=== PATIENT | female | born 1965 | race Caucasian/White ===

== ENCOUNTER 2022-11-06 07:00 | Outpatient (NON) | payer BC, SELFPAY | END 2022-11-06 07:01 | disposition home or self-care (01) | LOC: ANHLAB 11-08 13:54 | PROVIDERS: PCP Nurse Practitioner; Visit Provider Nurse Practitioner | DX: C44.622 Squamous cell carcinoma of skin of right upper limb, including shoulder (principal) | CPT/HCPCS: 88305 ==

== ENCOUNTER 2024-07-03 00:37 | Day surgery (SDC) | payer BC, SELFPAY ==
[2024-07-01 12:52] VITALS: BMI 18.6
--- NOTE | 2024-07-01 12:54 | PC.NURSE ---
Report to the Outpatient Waiting Room, entrance under the green pavilion located off [facility], at time _0730_ on date _[id number]_. Planned Procedure Time: _0930_. Time changes happen often and if your time is changed the preop area will call you the afternoon before. - You and your visitor will be asked to self-screen and do not enter if you have any COVID symptoms. - A mask is optional within the hospital at this time. Patients may have clear liquids (water, carbonated beverages, clear teas, apple juice) until 3 hours prior to surgery with a maximum of 20 ounces. - No food from midnight until time of surgery Take the following medications with a SIP of water the morning of surgery: ___Levothyroxine and if needed pain and or nausea medicine. DO NOT STOP ANY OF YOUR OTHER PRESCRIPTION MEDICATIONS PRIOR TO SURGERY ?EXCEPT THE FOLLOWING Medications to discontinue per physician None Date to take last dose Please no make-up, nail greek, hairspray, perfume, deodorant, or body powder the day of surgery. No jewelry (including any body piercings) or valuables the day of surgery, leave them at home. Please take a shower or bath the night before, or the morning of, surgery with an antibacterial soap. Wear comfortable, loose fitting clothing. - Jewelry must be removed prior to entering the operating room. Rings and piercings that are not removed may be cut off. - The hospital will not accept responsibility for valuables. - Please leave all valuables, including medications, at home the day of surgery. If you are going home after surgery, a licensed yard driver must drive you home. - NO public transportation without another adult if you receive anesthesia. - We recommend that an adult stay with you for 24 hours following discharge. - We also recommend that you do not drive, make important decision, drink alcoholic beverages, or take any drugs that were not prescribed by your health care provider for at least 24 hours after your discharge time. Follow any additional instructions given to you from your surgeon. If you or anyone in your household have experienced Covid symptoms in the past week, please notify your surgeon or the nurse liaison at the phone number below for possible testing. Telephone instructions given to __Raymie___and asked if any additional questions and then verbalized understanding. Patient advised to call surgeon office or pre surgery nurse liaison [phone] if any additional questions.
[2024-07-03] VITALS (10 sets, daily range): BP systolic 135–153; BP diastolic 74–87; PULSE 66–77; RESP 10–18; TEMP 36.6; O2SAT 96–100; BMI 16.7
--- NOTE | ~2024-07-03 | XR_ITS ---
EXAMINATION: XR surgery orthopedic DATE: 07/03/2024 12:13 INDICATION: Left foot metatarsal fracture. TECHNIQUE: 2 intraoperative fluoroscopic views of left foot were obtained. COMPARISON: None. FINDINGS: There are fractures of the diaphyses of first-third metatarsophalangeal joints status post open reduction internal fixation with plates and screws. At the second metatarsal, the distal fractur e fragment demonstrates 2 mm plantar lateral displacement. IMPRESSION: 1. Fractures of the diaphyses of first-third metatarsals status post open reduction internal fixation . Reviewed, dictated and finalized at location A. IMPRESSION: 1. Fractures of the diaphyses of first-third metatarsals status post open reduc tion internal fixation.
--- NOTE | 2024-07-03 07:18 | WPDHPUPDATE1 ---
History and Physical Update Update Date/Time: 07/03/24 07:18 History and Physical has been reviewed, including an updated exam of the patient. There are NO changes in the patient's condition. Risks, benefits, and alternatives have been discussed and questions answered. Patient agrees to proceed with procedure.
--- NOTE | 2024-07-03 09:12 | WPDANESEPPF ---
Anes - Initial Pre Proc Eval Procedure: Operation Date: 07/03/24 09:30 Proposed Procedures p Open Reduction Internal Fixation of First Through Third Metatarsal Fracture Left Foot - Mando Cruz Jr., DPM Date/Time: 07/03/24 09:12 Surgeon: Mando Cruz Jr., DPM Pre Op Diagnosis: metatarsal fracture left foot Patient Data Age: 59 Gender: F Height: 1.68 m Weight: 47.2 kg Allergies Allergy/AdvReac Type Severity Reaction Status Date / Time codeine AdvReac Intermediate Nausea and Verified 07/01/24 12:38 Vomiting Home Medications Medication Instructions Recorded Confirmed Type celecoxib 100 mg capsule 100 mg PO BID PRN Pain 07/01/24 07/01/24 History levothyroxine 75 mcg tablet 75 mcg PO DAILY 07/01/24 07/01/24 History ondansetron 4 mg disintegrating 4 mg PO Q4H PRN Nausea And Vomiting 07/01/24 07/01/24 History tablet tramadol 37.5 mg-acetaminophen 325 1 tablet PO Q6H PRN Pain 07/01/24 07/01/24 History mg tablet Patient hx anesthesia problems: none Family hx anesthesia problems: none Results Review: All pre-operative results and documents have been reviewed as part of the pre-operative evaluation. FOR[facility]LY [facility] Social History Social History Smoking status: Never smoker Living arrangements: with family Spiritual care concerns: No Anes - Eval Final PreProcedure Day of Procedure 07/03/24 09:12 Patient weight: normal Heart: regular rate and rhythm Lungs: clear to auscultation Airway: Mallampati scale class II Neurological: alert and oriented Last oral intake: >/= 8 hours ASA classification: II Emergent: no Anesthetic plan: proceed Anesthesia type and monitoring: general LMA and standard monitoring Results Review: All pre-operative results and documents have been reviewed as part of the pre-operative evaluation. Informed Consent: The patient's anesthetic plan and its attendant risks and benefits were discussed with the patient/family/POA. Questions were solicited and answers provided to the satisfaction of the patient/family/POA.
[2024-07-03] MEDS: SCOPOLAMINE 1 MG PATCH 1 PATCH TRANSDERM (09:14)
[2024-07-03] MEDS: LACTATED RINGERS 1,000 ML 30 ML IV CONT ×2 (09:14→12:14)
[2024-07-03] MEDS: ceFAZolin 2 GM/D5W 50 ML 2 GM/50 ML BAG IVPB (09:30)
[2024-07-03] MEDS: LIDOCAINE HCL 2% PF INJ 5 ML VIAL 10 ML INFILTRATE (10:13)
[2024-07-03] MEDS: fentaNYL CITRATE INJ (*CRX) 100 MCG/2 ML VIAL 25 MCG IV PUSH ×6 (12:21→13:19)
--- NOTE | 2024-07-03 12:23 | W.PM.PROC2 ---
Procedure Note - Detailed Date of Procedure 07/03/24 Pre-op Diagnosis Displaced 2nd through 3rd metatarsal fracture left foot Post-op Diagnosis Same Procedure Performed Open reduction with internal fixation of 1st through 3rd metatarsal fracture left foot Surgeon Mando Cruz Jr., [facility] Anesthesia General and Local Indications Transverse displaced fracture with lateral angulation of 1st through 3rd metatarsals left foot Description of Procedure Under mild sedation, the patient was brought to the operating room, placed on the operating table in the supine position. A pneumatic ankle tourniquet was placed about the patient's left ankle. Following general anesthesia and a common peroneal nerve block, the left foot was then scrubbed, prepped, and draped in the usual aseptic manner. An Esmarch bandage was then used to examine the patient's left foot and pneumatic ankle tourniquet was then inflated. Surgery began in the following manner. Attention was directed to the dorsal aspect of the 1st metatarsal of the left foot where a 6 cm incision was made just medial to the extensor tendon to the first metatarsal. The incision was continued deep down through the subcutaneous tissues using sharp and blunt dissection. All bleeders were cauterized as necessary. At this point a subcutaneous hematoma formation was noted, this was flushed with sterile saline. A full-length periosteal incision was made overlying the 1st metatarsal extending from the distal metaphysial diaphyseal junction to the base of the 1st metatarsal. Next, a freer periosteal elevator was used to separate and identify the fracture fragment. Moreover, the fracture was reduced with a purposeful attempt of also reducing the valgus first intermetatarsal angulation of the distal first metatarsal and reducing the 1st metatarsal phalangeal joint making congruous as the patient had a bunion deformity prior to the fracture. Next, I was able to temporarily fixate the fracture with a smooth k wire. I used an Arthrex 2.7mm 6 Hole T plate and 4 locking screws and one 2.7mm non locking screws utilizing standard principles and techniques. Fluoroscopy was used to make sure that the 1st metatarsal fracture was adequately reduced in both the AP and Lateral views. I removed the K wire. Next, the wound site was then flushed with copious amounts of sterile saline. Next, the periosteum and capsular structures overlying the affected metatarsal was reapproximated with 3-0 Vicryl. Next, subcutaneous structures were reapproximated and coapted utilizing 4-0 Vicryl. Next, the skin was reapproximated and coapted utilizing 4-0 Monocryl in running subcuticular suture fashion technique. Attention was directed to the dorsal aspect of the 2nd metatarsal of the left foot where a 5 cm incision was made at the 2nd intermetatarsal space of the left foot. The incision was continued deep down through the subcutaneous tissues using sharp and blunt dissection. All bleeders were cauterized as necessary. At this point a subcutaneous hematoma formation was noted it was flushed with sterile saline. A full-length periosteal incision was made overlying the 2nd metatarsal extending from the distal metaphysial diaphyseal junction to the base of the 2nd metatarsal. Next, a freer periosteal elevator was used to separate and identify the fracture fragment to the second metatarsal displaced fracture. Preoperative films showed a significantly long second and third metatarsal, so I made a transverse osteotomy at the fracture site and feathered the osteotomy until I adequately shortened the long second metatarsal until it was even with the parabola with the adjacent 1st metatarsal. Next, I was able to reduce and permanently fix the displaced 2nd metatarsal and hold the reduced 2nd metatarsal fracture with an Arthrex 2.0 mm straight 6 hole plate with five 2.0 locking screws. I did cut the proximal screw hole with the electroless plater prov
[2024-07-03] MEDS: ONDANSETRON INJ 4 MG/2 ML VIAL IV PUSH (13:21)
[2024-07-03] MEDS: oxyCODONE HCL (*CRX) 5 MG TAB IR PO (14:08)
== END 2024-07-03 15:10 | disposition home or self-care (01) ==
PROVIDERS: Visit Provider Podiatrist Foot & Ankle Surgery
PROC: (CPT 28485; principal; 2024-07-03 09:30)
DX: S92.312A Displaced fracture of first metatarsal bone, left foot, initial encounter for closed fracture (principal); S92.332A Displaced fracture of third metatarsal bone, left foot, initial encounter for closed fracture; S92.322A Displaced fracture of second metatarsal bone, left foot, initial encounter for closed fracture; W20.8XXA Other cause of strike by thrown, projected or falling object, initial encounter
CPT/HCPCS: 28485 ×3; 99199; A9270; C1769; J0690; J1100; J2250; J2405; J2704; J3010; J7120